=== PATIENT | male | born 1975 | race Two or more races ===

== ENCOUNTER 2017-01-27 01:05 | Emergency (ER) | payer OTHER ==
[~2017-01-27] VITALS: Ht 170.2 cm; Wt 97.1 kg
[2017-01-27 01:13] VITALS: BP 122/70
--- NOTE | 2017-01-27 01:18 | NUR ---
AMBULATED TO ER BED 6
--- NOTE | 2017-01-27 01:29 | NUR ---
41 Y/O M W/C/O CHEST PAIN WHICH RADIATES TO BACK WHEN COUGHING SINCE LAST THURSDAY. O2 SAT 99% RA, SLIGHTLY DIMINISHED ON UPPER LOBES, NO OTHER S/S OF DISTRESS NOTED. EKG DONE ON TRIAGE, SINUS DUSTIN. ER MD MADE AWARE. PT ON CASE MANAGER.
[2017-01-27 02:05] LABS: BASOPHILS # (AUTO) 0.3 K/uL (0.00-0.22); BASOPHILS % (AUTO) 4.4 % (0.0-2.0); EOSINOPHILS # (AUTO) 0.2 K/uL (0-0.4); EOSINOPHILS % (AUTO) 2.9 % (0.0-4.0); HEMATOCRIT 46.6 % (36-52); HEMOGLOBIN 15.2 g/dL (12.0-18.0); LYMPHOCYTES % (AUTO) 28.7 % (20.5-51.1); MEAN CORPUSCULAR HEMOGLOBIN 29 pg (27-31); MEAN CORPUSCULAR HGB CONC 33 g/dL (33-37); MEAN CORPUSCULAR VOLUME 89 fL (80-94); MONOCYTES # (AUTO) 0.7 K/uL (0.8-1.0); NEUTROPHILS # (AUTO) 3.7 K/uL (1.8-7.7); PLATELET COUNT (AUTO) 173 K/uL (140-450); RED BLOOD CELL COUNT(AUTO) 5.26 MIL/uL (4.20-6.10); RED CELL DISTRIBUTION WIDTH 12.9 % (11.6-13.7); WHITE BLOOD COUNT (AUTO) 6.9 K/uL (4.8-10.8)
[2017-01-27 02:16] LABS: ANION GAP 11.2 (8-16); CARBON DIOXIDE 29.9 mmol/L (21-32); CREATININE 1.3 mg/dL (0.7-1.3); POTASSIUM 4.1 mmol/L (3.5-5.1)
--- NOTE | 2017-01-27 02:16 | NUR ---
PT LAYING IN BED, SINUS RHYTHM, VSS, AWATING FOR RESULTS. NO S/S OF DISTRESS NOTED AT THE MOMENT.
--- NOTE | 2017-01-27 02:19 | NUR ---
Note undone in ED - 01/27/17 at 220 by CARLOS PT LAYING IN BED, SINUS RHYTHM, VSS, AWATING FOR RESULTS. NO S/S OF DISTRESS NOTED AT THE [facility] Addendum: 01/27/17 at 0220 by CARLOS Amendment undone in [facility] - 01/27/17 at 0221 by CARLOS PT LAYING IN BED, SINUS RHYTHM, VSS, AWATING FOR RESULTS. NO S/S OF DISTRESS NOTED AT THE MOMENT.
[2017-01-27 02:33] LABS: ALBUMIN 3.3 g/dL (3.4-5.0); TOTAL BILIRUBIN 0.4 mg/dL (0.0-1.0)
--- NOTE | 2017-01-27 02:41 | NUR ---
Patient appears to be resting comfortably in bed. Vital Signs within normal limits. Respirations even and unlabored. pt noted to have a dry cough.
[2017-01-27 03:20] VITALS: BP 114/65
--- NOTE | 2017-01-27 03:20 | NUR ---
Patient discharged with v/s stable. Written and verbal after care instructions given and explained. Patient alert, oriented and verbalized understanding of instructions. Ambulatory with steady gait. All questions addressed prior to discharge. ID band removed. Patient advised to follow up with PMD OR RETURN TO ER IF CONDITION WORSENS. Rx of PROMETH WITH CODEINE given. Patient educated on indication of medication including possible reaction and side effects. Opportunity to ask questions provided and answered.
== END 2017-01-27 03:20 | disposition home or self-care (01) ==
LOC: MED 01:05
DX: R07.89 Other chest pain (principal); R05 Cough; R94.31 Abnormal electrocardiogram [ECG] [EKG]
CPT/HCPCS: 36415; 71010; 80053; 84484; 85025; 99285; Q0092

== ENCOUNTER 2018-02-04 05:45 | Emergency (ER) | payer OTHER ==
[~2018-02-04] VITALS: Ht 170.2 cm; Wt 97.5 kg
[2018-02-04 05:46] VITALS: BP 135/82
[2018-02-04] MEDS ORDERED: KETOROLAC 30 MG/ML VIAL IM ONE (06:00)
[2018-02-04 07:20] VITALS: BP 142/78
== END 2018-02-04 07:20 | disposition home or self-care (01) ==
LOC: MED 05:45
DX: R51 Headache (principal)
CPT/HCPCS: 70450; 96372; 99284; J1885